=== PATIENT | female | born 1985 | race Caucasian/White ===

== ENCOUNTER 2022-06-30 09:59 | Inpatient (IN) | payer BC ==
[2022-06-30] MEDS ORDERED: CITRIC ACID-SODIUM CITRATE 15 ML CUP PO ONE (10:29)
[2022-06-30 10:51] LABS: Glucose,Whole Blood 89 mg/dL (70-110)
[2022-06-30] MEDS: LACTATED RINGERS 1,000 ML IV SCH ×4 (10:56→22:49)
[2022-06-30] MEDS ORDERED: ONDANSETRON 4 MG/2 ML VIAL ONE (12:17)
[2022-06-30] MEDS ORDERED: MORPHINE SULFATE (PF) 0.3 MG/0.3 ML SYR ONE (12:17)
[2022-06-30] MEDS ORDERED: OXYTOCIN 30 UNITS/500 ML NS BAG IV ONE (12:17)
[2022-06-30] MEDS ORDERED: NALBUPHINE 10 MG/ML (1 ML AMP) ONE (12:17)
[2022-06-30 13:07] LABS: Anisocytosis Slight; Basophils % (A) 0 %; Eosinophils # (A) 0.1 k/uL (0-0.7); Eosinophils % (A) 1 %; HCT 38.9 % (34.0-46.0); Lymphocytes # (A) 1.3 k/uL (1.0-4.8); Lymphocytes % (A) 15 %; MCH 30.3 pg (25.0-35.0); MCHC 33.3 g/dL (31.0-37.0); MCV 90.8 fL (80.0-100.0); Mean Platelet Volume 10.9; Monocytes # (A) 0.2 k/uL (0-1.0); Monocytes % (A) 3 %; Neutrophils # (A) 6.8 k/uL (1.3-7.7); Neutrophils % (A) 80 %; Platelet Count 331 k/uL (150-450); Poikilocytosis Slight; RBC 4.28 m/uL (3.80-5.40); RDW 16.9 % (11.5-15.5); WBC 8.5 k/uL (3.8-10.6)
--- NOTE | 2022-06-30 13:18 | P.HPOB ---
History of Present Illness H&P Date: 06/30/22 Chief Complaint: IUP at 39-2/7 weeks, history of desires repeat This is a 37-year-old 3 para 2001 at 39-2/7 weeks that presents to labor and delivery for scheduled repeat section. Patient has been receiving routine care which has been essentially uncomplicated. Patient did have a diagnosis of gestational diabetes which was well-controlled with diet and metformin. Patient does note good movement denies contractions or vaginal bleeding. On bloodwork this patient is a blood type of O+, rubella status immune, hepatitis B surface antigen negative, HIV negative, RPR is nonreactive, group beta strep cultures are negative. Review of Systems Constitutional: Denies chills, Denies fatigue, Denies fever Ears, nose, mouth and throat: Denies headache Cardiovascular: Reports leg edema Respiratory: Denies dyspnea Gastrointestinal: Denies constipation, Denies diarrhea, Denies nausea Genitourinary: Reports Past Medical History Past Medical History: Asthma History of Any Multi-Drug Resistant Organisms: None Reported Past Surgical History: Section Past Anesthesia/Blood Transfusion Reactions: Postoperative Nausea & Vomiting (P ONV) Past Psychological History: No Psychological Hx Reported Smoking Status: Never smoker Past Alcohol Use History: None Reported Past Drug Use History: None Reported - Past Family History Mother Family Medical History: Diabetes Mellitus, Fibromyalgia, Neurologic Disorder Additional Family Medical History / Comment(s): bipolar and interstisitis Medications and Allergies Home Medications Medication Instructions Recorded Confirmed Type Acyclovir 200 mg PO DAILY 06/30/22 06/30/22 History Aspirin 81 mg PO DAILY 06/30/22 06/30/22 History Doxylamine Succinate [Unisom] 25 mg PO DAILY 06/30/22 06/30/22 History Fluticasone Propion/Salmeterol 1 puff INHALATION DAILY 06/30/22 06/30/22 History [Advair 250-50 Diskus] Vit No.179/Iron/Folic 1 each PO DAILY 06/30/22 06/30/22 History [ Tablet] metFORMIN HCL ER [Glucophage XR] 500 mg PO DAILY 06/30/22 06/30/22 History Allergies Allergy/AdvReac Type Severity Reaction Status Date / Time No Known Allergies Allergy Verified 06/30/22 10:19 Exam Osteopathic Statement: *. No significant issues noted on an osteopathic structural exam other than those noted in the History and Physical/Consult. 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 Results Result Diagrams: 06/30/22 10:25 Abnormal Lab Results - Last 24 Hours (Table) 06/30/22 Range/Units 10:25 RDW 16.9 H (11.5-15.5) % Assessment and Plan (1) Term Current Visit: Yes Status: Acute Code(s): Z34.90 - ENCNTR FOR SUPRVSN OF NORMAL , UNSP, UNSP TRIMESTER SNOMED Code(s): 12301752 (2) H/O section Current Visit: Yes Status: Acute Code(s): Z98.891 - HISTORY OF UTERINE SCAR FROM PREVIOUS SURGERY SNOMED Code(s): 066317591 (3) Family planning Current Visit: Yes Status: Acute Code(s): Z30.09 - ENCOUNTER FOR OT GENERAL CNSL AND ADVICE ON CONTRACEPTION SNOMED Code(s): 391748405 Plan: 37-year-old at 39-2/7 weeks presents for scheduled repeat section with tubal ligation. Patient is counseled on the risks of surgery and all questions are answered. Patient states she would like tubal ligation the time of section.
--- NOTE | 2022-06-30 13:23 | P.OP ---
Date of Procedure: 06/30/22 Preoperative Diagnosis: IUP at 39 and 2, history of 2 desires repeat, feeling status complete Postoperative Diagnosis: Same Procedure(s) Performed: Repeat section with tubal ligation Anesthesia: spinal Surgeon: Hailey Mathis Excavating Supervisor #1: Elizabeth Sanchez Estimated Blood Loss (ml): 440 IV fluids (ml): 700 Urine output (ml): 100 Pathology: none sent Condition: stable Disposition: observation Indications for Procedure: History of 2 desires repeat with tubal ligation as family status is complete Operative Findings: Viable female delivered at 1241, weight of 8 lbs. 4 oz., Apgars of 9 and 9 at one and 5 minutes respectively. Normal uterus tubes and ovaries are appreciated, bilateral Filshie clips are applied Description of Procedure: The patient was prepped and draped in the usual fashion after spinal anesthesia was administered. A Pfannenstiel incision was made and extended of the abdominal cavity without difficulty. The bladder peritoneum was elevated and incised and reflected distally. A 2 cm incision was made in the transverse plane of the lower uterine segment to enter the uterus at which time clear fluid was noted. The incision was extended in both directions using the bandage scissors. The head was encountered within the field and delivered up and through the incision where the nose and mouth were thoroughly suctioned. Remainder of the infant was delivered onto the surgical field where the cord was doubly clamped, cut, and the was passed for resuscitative measures with weight and Apgars as noted above. A segment of cord was then doubly clamped, cut, and set aside should cord gases become necessary. The placenta was delivered manually, intact, and was grossly normal with a grossly normal three- vessel cord. The uterus was exteriorized and the interior cavity of the uterus swept of any remaining placental and membranous fragments with a laparotomy spo nge. The margins of the incision were grasped with allis clamps and the incision closed in 2 layers. First layer was a running locking layer of 0 Vicryl from margin to margin, from one lateral edge the other. Small amount bleeding was noted therefore 2 [id number] sutures were used to obtain hemostasis. The right fallopian tube was visualized and grasped with the Filshie clip applicator, the tube was noted to be crushed and this was repeated on the opposite side.. Any small points of bleeding were then made hemostatic with the Bovie. Once hemostasis was achieved, the posterior cul-de-sac was suctioned with a guard and the uterine and ovarian findings are as noted above. The uterus was replaced within the abdominal cavity and the gutters swept of any remaining blood fluid or clot. The incision was again reexamined and hemostasis was noted to be excellent. Any small point of bleeding were made hemostatic with the Bovie. Once hemostasis was achieved the parietal peritoneum was loosely reapproximated. The layer of muscles were examined and made hemostatic with the Bovie. Attention was then turned to the fascia which was closed with 2 running stitches of 0 Vicryl proceeding from the lateral margins to the midpoint. The subcutaneous tissues were irrigated, made hemostatic with the Bovie, and reapproximated with a running stitch of 30 plain catgut. The skin was reapproximated with regular surgical valeri. Estimated blood loss for the case was approximately 440 mL. All sponge instrument and needle counts are correct. There were no complications. The patient tolerated the procedure well and proceeded to the recovery room in stable condition. Both mother and are resting comfortably in recovery.
[2022-06-30] MEDS ORDERED: diphenhydrAMINE 25 MG CAP PO PRN (13:26)
[2022-06-30] MEDS ORDERED: NALOXONE 0.4 MG/ML 1 ML VIAL IV PRN (13:26)
[2022-06-30] MEDS ORDERED: ONDANSETRON 4 MG/2 ML VIAL IVP PRN (13:26)
[2022-06-30] MEDS ORDERED: diphenhydrAMINE 50 MG CAP PO PRN (13:26)
[2022-06-30] MEDS ORDERED: ZOLPIDEM 5 MG TAB PO PRN (13:26)
[2022-06-30] MEDS ORDERED: diphenhydrAMINE 50 MG/ML 1 ML VIAL IVP PRN ×2 (13:26)
[2022-06-30] MEDS ORDERED: METOCLOPRAMIDE 5 MG/ML 2 ML VIAL IVP PRN (13:26)
[2022-06-30] MEDS ORDERED: SIMETHICONE 80 MG CHEWABLE PO PRN (13:26)
[2022-06-30] MEDS ORDERED: OXYTOCIN 30 UNITS/500 ML NS 30 UNIT in SALINE 1 500ML.BAG IV SCH (13:30)
[2022-06-30] MEDS: ACETAMINOPHEN IV (For NPO) 1,000 MG in EMPTY BAG 1 BAG IVPB SCH ×2 (18:18→22:50)
[2022-06-30] MEDS: ACETAMINOPHEN TAB 500 MG TAB PO SCH ×2 (18:23→20:02)
[2022-06-30] MEDS: SENNOSIDES-DOCUSATE SODIUM 1 EACH TAB PO SCH (20:02)
[2022-06-30] MEDS: IBUPROFEN IV 800 MG in SODIUM CHLORIDE 0.9% 250 ML IV SCH (22:48)
[2022-06-30] MEDS: IBUPROFEN 600 MG TAB PO SCH ×2 (22:49→23:59)
[2022-07-01] MEDS: IBUPROFEN IV 800 MG in SODIUM CHLORIDE 0.9% 250 ML IV SCH ×2 (00:18→08:01)
[2022-07-01] MEDS: LACTATED RINGERS 1,000 ML IV SCH ×2 (02:58→03:52)
[2022-07-01] MEDS: ACETAMINOPHEN TAB 500 MG TAB PO SCH ×4 (03:41→21:41)
[2022-07-01 06:55] LABS: Basophils % (A) 0 %; Eosinophils % (A) 0 %; HGB 11.4 gm/dL (11.4-16.0); Lymphocytes # (A) 0.9 k/uL (1.0-4.8); Lymphocytes % (A) 9 %; MCH 30.1 pg (25.0-35.0); MCHC 33.6 g/dL (31.0-37.0); MCV 89.7 fL (80.0-100.0); Mean Platelet Volume 8.1; Monocytes # (A) 0.3 k/uL (0-1.0); Monocytes % (A) 3 %; Neutrophils % (A) 87 %; Platelet Count 255 k/uL (150-450); RBC 3.79 m/uL (3.80-5.40); RDW 15.5 % (11.5-15.5); WBC 10.3 k/uL (3.8-10.6)
[2022-07-01] MEDS: IBUPROFEN 600 MG TAB PO SCH ×3 (07:44→18:10)
[2022-07-01] MEDS: SENNOSIDES-DOCUSATE SODIUM 1 EACH TAB PO SCH ×2 (07:44→21:41)
--- NOTE | 2022-07-01 08:32 | P.PNOBGPC ---
Subjective - Subjective Principal diagnosis: Postop day 1, repeat section with tubal ligation Interval history: Patient is doing well post operatively. She is ambulating and voiding without difficulty. She is tolerating clear liquids without nausea or vomiting. Her lochia is minimal. She states her pain is well-controlled. Patient reports: Reports appetite normal, Reports voiding normally, Reports pain well controlled, Reports ambulating normally : doing well Objective - Vital Signs Latest vital signs: Vital Signs Temp Pulse Resp BP Pulse Ox 07/01/22 07:56 97.8 F 88 18 133/82 98 07/01/22 03:51 98 F 78 18 130/76 100 07/01/22 00:00 98.6 F 91 18 138/81 99 06/30/22 20:00 98.4 F 73 16 124/66 97 06/30/22 15:15 96.6 F L 98 16 142/73 06/30/22 14:45 83 16 138/78 98 06/30/22 14:15 74 16 136/70 98 06/30/22 14:00 62 16 140/69 97 06/30/22 13:45 76 16 144/68 98 06/30/22 13:30 73 16 142/67 98 06/30/22 13:15 96.6 F L 79 16 133/96 99 06/30/22 10:45 97.9 F 101 H 16 157/86 98 Intake and Output 06/30/22 07/01/22 07/01/22 22:59 06:59 14:59 Output Total 1105 500 Balance -1105 -500 Output: Urine 750 500 Straight 500 Uretheral (Lopez) 350 Output, Quantitative 355 Blood Loss - Exam Extremities: Present: normal, edema Abdomen: Present: normal appearance, soft Incision: Present: normal, dry, intact Uterus: Present: normal, firm - Labs Labs: Abnormal Lab Results - Last 24 Hours (Table) 06/30/22 07/01/22 Range/Units 10:25 06:12 RBC 3.79 L (3.80-5.40) m/uL RDW 16.9 H (11.5-15.5) % Neutrophils # 9.0 H (1.3-7.7) k/uL Lymphocytes # 0.9 L (1.0-4.8) k/uL Assessment and Plan (1) Term Current Visit: Yes Status: Acute Code(s): Z34.90 - ENCNTR FOR SUPRVSN OF NORMAL , UNSP, UNSP TRIMESTER SNOMED Code(s): 91109916 (2) H/O section Current Visit: Yes Status: Acute Code(s): Z98.891 - HISTORY OF UTERINE SCAR FROM PREVIOUS SURGERY SNOMED Code(s): 207987161 (3) Family planning Current Visit: Yes Status: Acute Code(s): Z30.09 - ENCOUNTER FOR OT GENERAL CNSL AND ADVICE ON CONTRACEPTION SNOMED Code(s): 637021766 (4) S/P section Current Visit: Yes Status: Acute Code(s): Z98.891 - HISTORY OF UTERINE SCAR FROM PREVIOUS SURGERY SNOMED Code(s): 279990696 Plan: 37-year-old G3 now P3 status post repeat with tubal ligation. Patient is doing well postoperatively we'll advance diet to regular. Continue routine postoperative care and anticipate discharge home tomorrow.
[2022-07-01] MEDS: PRENATAL VIT-IRON-FOLIC ACID 1 EACH TABLET PO SCH (09:15)
[2022-07-01] MEDS: SYMBICORT 80-4.5 MCG INHALER INHALATION SCH ×2 (09:20→19:54)
--- NOTE | 2022-07-01 12:42 | P.PN ---
Progress Note - Text Date: 07/01/2022 Time: 07:07 The patient is status post section Vital signs stable VAS:0-10 Patient has no complaints of pain. The patient incurred some minimal itching yesterday, this itching is now subsiding. Pain meds to be managed by service.
[2022-07-02] MEDS: IBUPROFEN 600 MG TAB PO SCH ×3 (00:48→12:05)
[2022-07-02] MEDS: ACETAMINOPHEN TAB 500 MG TAB PO SCH ×2 (03:57→08:46)
[2022-07-02 08:45] VITALS: PULSE 78; RESP 17; TEMP 98.1
[2022-07-02] MEDS: SENNOSIDES-DOCUSATE SODIUM 1 EACH TAB PO SCH (08:45)
[2022-07-02] MEDS: SYMBICORT 80-4.5 MCG INHALER INHALATION SCH (09:22)
[2022-07-02] MEDS: PRENATAL VIT-IRON-FOLIC ACID 1 EACH TABLET PO SCH (10:11)
[2022-07-02 10:40] VITALS: BP 138/81
--- NOTE | 2022-07-02 11:25 | P.DS ---
Providers Date of admission: 06/30/22 09:59 Expected date of discharge: 07/02/22 Attending physician: Hailey Mathis Primary care physician: Stated None - Discharge Diagnosis(es) (1) Term Current Visit: Yes Status: Acute (2) H/O section Current Visit: Yes Status: Acute (3) Family planning Current Visit: Yes Status: Acute (4) S/P section Current Visit: Yes Status: Acute Hospital Course: This is a 27 yo G3now P 3003 that is s/p RCS with TL. she had routine care that was essentially uncomplicate, she did have a dx of gdm ut was well controlled with diet and metformin. For full details on this patient please see the dictated history and physical. she was admitted to labor and delivery and c section was preformed without difficulty. On this day 2 she is ambulating and voiding without difficulty, tolerating a regular diet. she states her pain is well controlled. she denies concerns and states she desires discharge. lochia is noted to be minimal and decreasing and she is without difficulty. Patient Condition at Discharge: Good Plan - Discharge Summary New Discharge Prescriptions: No Action Vit No.179/Iron/Folic [ Tablet] 1 each PO DAILY Acyclovir 200 mg PO DAILY metFORMIN HCL ER [Glucophage XR] 500 mg PO DAILY Doxylamine Succinate [Unisom] 25 mg PO DAILY Fluticasone Propion/Salmeterol [Advair 250-50 Diskus] 1 puff INHALATION DAILY Aspirin 81 mg PO DAILY Discharge Medication List Acyclovir 200 mg PO DAILY 06/30/22 [History] Aspirin 81 mg PO DAILY 06/30/22 [History] Doxylamine Succinate [Unisom] 25 mg PO DAILY 06/30/22 [History] Fluticasone Propion/Salmeterol [Advair 250-50 Diskus] 1 puff INHALATION DAILY 06/30/22 [History] Vit No.179/Iron/Folic [ Tablet] 1 each PO DAILY 06/30/22 [History] metFORMIN HCL ER [Glucophage XR] 500 mg PO DAILY 06/30/22 [History] Follow up Appointment(s)/Referral(s): Hailey Mathis DO [Doctor of Osteopathic Medicine] - 2 Weeks Patient Instructions/Handouts: (DC), (GEN) Activity/Diet/Wound Care/Special Instructions: OTC ibuprofen and tylenol for pain control post operatively. no tubs baths or intercourse until 6 weeks . she is to been seen in 1 week for a BP check, [facility] is asked to call with any concerns prior to this appt. Discharge Disposition: HOME SELF-CARE
== END 2022-07-02 12:13 | disposition home or self-care (01) | DRG 785 ==
LOC: 4FBP 09:59
PROVIDERS: ADMIT Obstetrics & Gynecology Obstetrics; ATTEND Obstetrics & Gynecology Obstetrics
PROC: 0UB70ZZ Excision of Bilateral Fallopian Tubes, Open Approach (ICD-10-PCS; 2022-06-30)
PROC: 10D00Z1 Extraction of Products of Conception, Low, Open Approach (ICD-10-PCS; principal; 2022-06-30 12:00)
DX: O34.211 Maternal care for low transverse scar from previous cesarean delivery (principal); O99.52 Diseases of the respiratory system complicating childbirth; J45.909 Unspecified asthma, uncomplicated; Z37.0 Single live birth; O24.425 Gestational diabetes mellitus in childbirth, controlled by oral hypoglycemic drugs; O99.73 Diseases of the skin and subcutaneous tissue complicating the puerperium; L29.9 Pruritus, unspecified; Z30.2 Encounter for sterilization; Z3A.39 39 weeks gestation of pregnancy; Z79.82 Long term (current) use of aspirin; Z79.84 Long term (current) use of oral hypoglycemic drugs
CPT/HCPCS: 83036; 85025; 86850; 86900; 86901